=== PATIENT | male | born 1935 | race African-American/Black ===

== ENCOUNTER 2017-01-04 15:02 | Emergency (ER) | payer MEDICARE ==
[~2017-01-04] VITALS: Ht 167.6 cm; Wt 104.3 kg
[2017-01-04 15:43] VITALS: BP 164/89
[2017-01-04 16:34] LABS: MEAN CORPUSCULAR HEMOGLOBIN 30.6 PG (27.0-31.0); MEAN CORPUSCULAR HGB CONC 34.2 G/DL (32.0-36.0); MEAN CORPUSCULAR VOLUME 89 FL (80-99); MEAN PLATELET VOLUME 7.5 FL (6.5-10.1); PLATELET COUNT 87 K/UL (150-450); RED BLOOD COUNT 3.72 M/UL (4.70-6.10); RED CELL DISTRIBUTION WIDTH 13.2 % (11.6-14.8); WHITE BLOOD COUNT 6.9 K/UL (4.8-10.8)
[2017-01-04 16:37] LABS: BASOPHILS % (AUTO) 1.3 % (0.0-2.0); EOSINOPHILS % (AUTO) 3.6 % (0.0-3.0); LYMPHOCYTES % (AUTO) 22.8 % (20.0-45.0); MONOCYTES % (AUTO) 9.4 % (1.0-10.0); NEUTROPHILS % (AUTO) 62.9 % (45.0-75.0)
[2017-01-04 17:08] LABS: ALANINE AMINOTRANSFERASE 55 U/L (3-41); ALBUMIN/GLOBULIN RATIO 0.9 (1.0-2.7); ANION GAP 12 (5-15); ASPARTATE AMINO TRANSFERASE 61 U/L (5-40); CALCIUM 9.4 mg/dL (8.6-10.2); CARBON DIOXIDE 23 mEQ/L (20-30); CHLORIDE 104 mEQ/L (98-107); CREATININE 1.4 mg/dL (0.7-1.2); HEMOLYSIS 88; LIPASE 44 U/L (< 60); POTASSIUM 5.2 mEQ/L (3.4-4.9); SODIUM 139 mEQ/L (135-145); TOTAL PROTEIN 7.6 g/dL (6.6-8.7)
[2017-01-04] MEDS ORDERED: Morphine Sulfate 4mg/ml Inj IVP ONE (17:30)
[2017-01-04 17:44] VITALS: BP 156/84
[2017-01-04 18:10] LABS: APPEARANCE,URINE CLEAR; KETONES,URINE NEGATIVE (NEGATIVE); LEUKOCYTE ESTERASE ,URINE NEGATIVE (NEGATIVE); NITRITE,URINE NEGATIVE (NEGATIVE); PH,URINE 6.5 (4.5-8.0); PROTEIN,URINE NEGATIVE (NEGATIVE); UROBILINOGEN,URINE NORMAL MG/DL (0.0-1.0)
[2017-01-04] MEDS ORDERED: Sodium Polystyrene Sulfonate 15gm Powder ORAL ONE (18:30)
[2017-01-04] MEDS ORDERED: metroNIDAZOLE 500mg tab ORAL ONE (18:30)
[2017-01-04] MEDS ORDERED: Ciprofloxacin 500mg tab ORAL ONE (18:30)
[2017-01-04] MEDS ORDERED: METRONIDAZOLE500 MG ORAL (18:32)
[2017-01-04] MEDS ORDERED: ACETAMINOPHEN-1 EAC1 ORAL (18:32)
[2017-01-04] MEDS ORDERED: CIPROFLOXACIN500 M2 ORAL (18:32)
[2017-01-04] MEDS ORDERED: COLACE100 MG ORAL (18:32)
[2017-01-04 18:52] VITALS: BP 156/84
--- NOTE | 2017-01-04 20:06 | Emergency Room Report ---
History of Present Illness General Chief Complaint: Constipation Source: Patient Present Illness HPI 81-year-old male presents ED complaining of rectal bleeding times one day. Patient has history of constipation and states that he is currently not taking any medication. Feels that he has a hard time with bowel movements. Has blood in stool. Patient denies taking any blood thinners. Patient notes some lower abdominal pain, 5-10, sharp, nonradiating. Denies fevers or chills. Denies nausea or vomiting. Seen by urologist yesterday. Recently treated for UTI. No other aggravating relieving factors. Denies any other associated symptom Allergies: Coded Allergies: UNABLE TO ASSESS (Unverified , 01/04/17) PT REPORTS ALLERGIES TO HTN MEDS BUT DOES NOT RECALL MED NAME Patient History Past Medical History: none, DM, HTN, GERD Past Surgical History: none Pertinent Family History: none Social History: Denies: smoking, alcohol use, drug use Immunizations: UTD Reviewed Nursing Documentation: PMH: Agreed, PSxH: Agreed Nursing Documentation-PMH Past Medical History: No History, Except For Hx Hypertension: Yes Hx Diabetes: Yes Hx Gastrointestinal Problems: Yes - Acid reflux Hx Neurological Problems: Yes - "Spine problems" Review of Systems All Other Systems: negative except mentioned in HPI Physical Exam Vital Signs Date Time Temp Pulse Resp B/P (MAP) Pulse Ox O2 Delivery O2 Flow Rate FiO2 01/04/17 15:24 99.0 110 16 152/92 99 Room Air Sp02 EP Interpretation: reviewed, normal General Appearance: no apparent distress, alert, GCS 15, non-toxic, obese Head: normocephalic, atraumatic Eyes: bilateral eye normal inspection, bilateral eye PERRL ENT: hearing grossly normal, normal pharynx, no angioedema, normal voice Neck: full range of motion, supple/symm/no masses Respiratory: chest non-tender, lungs clear, normal breath sounds, speaking full sentences Cardiovascular #1: regular rate, rhythm, no edema Cardiovascular #2: 2+ carotid (R), 2+ carotid (L), 2+ radial (R), 2+ radial (L) , 2+ dorsalis pedis (R), 2+ dorsalis pedis (L) Gastrointestinal: normal bowel sounds, soft, non-distended, no guarding, no rebound, tenderness Rectal: tenderness Genitourinary: normal inspection, no CVA tenderness Musculoskeletal: back normal, gait/station normal, normal range of motion, non- tender Neurologic: alert, oriented x3, responsive, motor strength/tone normal, sensory intact, speech normal Psychiatric: judgement/insight normal, memory normal, mood/affect normal, no suicidal/homicidal ideation Reflexes: 3+ bicep (R), 3+ bicep (L), 3+ tricep (R), 3+ tricep (L), 3+ knee (R) , 3+ knee (L) Skin: normal color, no rash, warm/dry, well hydrated Lymphatic: no adenopathy Medical Decision Making Diagnostic Impression: Primary Impression: Proctitis Additional Impression: Constipation Qualified Codes: K59.00 - Constipation, unspecified ER Course Hospital Course 81-year-old M presents to ED with abdominal pain, blood in stool Differential diagnosis includes-diverticulitis, LGIB, constipation, hemorrhoids Clinical course Patient placed on stretcher. After initial history and physical I ordered labs , IV fluids, pain medications and CT scan Labs - no leukocytosis, K 5.2, Cr 1.4, LFTs normal Patient is requesting enema during this time. I explained that we need to wait for CT results CT scan shows fecal impaction, evidence of proctitis I discussed case with urology Dr Brand; he agrees that patient should not receive an enema. Given that patient is afebrile with no leukocytosis, he can be safely discharged with antibiotics. Discussed findings with patient. He will followup with his urologist this week. Given Kayexalate. Given Cipro and Flagyl in ED Upon reassessment, patient states pain has improved. Given improvement in symptoms and lack of acute findings, I believe patient can be safely discharged to home. Patient agrees with plan I feel this is a highly complex case requiring extensive working including EKG/ Rhythm strip, Xray/CT/US, Blood/urine lab work, repeat exams while in ED, and administration of strong opiates/narcotics for pain control, admission to hospital or close patient follow up. Diagnosis - proctitis, constipation Stable and discharged to home with Rx Colace, Cipro, Flagyl, Tylenol #3. Followup with PMD/urology. Return to ED if symptoms recur or worsen Labs Test 01/04/17 16:15 01/04/17 17:50 White Blood Count 6.9 K/UL (4.8-10.8) Red Blood Count 3.72 M/UL (4.70-6.10) Hemoglobin 11.4 G/DL (14.2-18.0) Hematocrit 33.2 % (42.0-52.0) Mean Corpuscular Volume 89 FL (80-99) Mean Corpuscular Hemoglobin 30.6 PG (27.0-31.0) Mean Corpuscular Hemoglobin Concent 34.2 G/DL (32.0-36.0) Red Cell Distribution Width 13.2 % (11.6-14.8) Platelet Count 87 K/UL (150-450) Mean Platelet Volume 7.5 FL (6.5-10.1) Neutrophils (%) (Auto) 62.9 % (45.0-75.0) Lymphocytes (%) (Auto) 22.8 % (20.0-45.0) Monocytes (%) (Auto) 9.4 % (1.0-10.0) Eosinophils (%) (Auto) 3.6 % (0.0-3.0) Basophils (%) (Auto) 1.3 % (0.0-2.0) Sodium Level 139 mEQ/L (135-145) Potassium Level 5.2 mEQ/L (3.4-4.9) Chloride Level 104 mEQ/L (98-107) Carbon Dioxide Level 23 mEQ/L (20-30) Anion Gap 12 (5-15) Blood Urea Nitrogen 15 mg/dL (7-23) Creatinine 1.4 mg/dL (0.7-1.2) Estimat Glomerular Filtration Rate mL/min (>60) Glucose Level 109 mg/dL (74-106) Calcium Level 9.4 mg/dL (8.6-10.2) Total Bilirubin 0.3 mg/dL (0.0-1.2) Aspartate Amino Transf (AST/SGOT) 61 U/L (5-40) Alanine Aminotransferase (ALT/SGPT) 55 U/L (3-41) Alkaline Phosphatase 81 U/L (40-129) Total Protein 7.6 g/dL (6.6-8.7) Albumin 3.6 g/dL (3.5-5.2) Globulin 4.0 g/dL Albumin/Globulin Ratio 0.9 (1.0-2.7) Lipase 44 U/L (< 60) Urine Color Yellow Urine Appearance Clear Urine pH 6.5 (4.5-8.0) Urine Specific [place] 1.010 (1.005-1.035) Urine Protein Negative (NEGATIVE) Urine Glucose (UA) Negative (NEGATIVE) Urine Ketones Negative (NEGATIVE) Urine Occult Blood Negative (NEGATIVE) Urine Nitrite Negative (NEGATIVE) Urine Bilirubin Negative (NEGATIVE) Urine Urobilinogen Normal MG/DL (0.0-1.0) Urine Leukocyte Esterase Negative (NEGATIVE) CT/MRI/US Diagnostic Results CT/MRI/US Diagnostic Results : Imaging Test Ordered: CT A/P Impression fecal impaction. proctitis Last Vital Signs Date Time Temp Pulse Resp B/P (MAP) Pulse Ox O2 Delivery O2 Flow Rate FiO2 01/04/17 18:52 98.9 94 13 156/84 100 Room Air Status: improved Disposition: HOME, SELF-CARE Condition: Stable Scripts Docusate Sodium* (COLACE*) 100 Mg Capsule 100 MG ORAL THREE TIMES A DAY, #30 CAP Prov: PEPITO GOMEZ M.D. 01/04/17 Acetaminophen With Codeine (T#3) (TYLENOL #3 TAB*) Y Tab 1 TAB ORAL Q8H Y for For Pain, #20 TAB Prov: PEPITO GOMEZ M.D. 01/04/17 Metronidazole* (FLAGYL*) 500 Mg Tablet 500 MG ORAL THREE TIMES A DAY, #21 TAB Prov: PEPITO GOMEZ M.D. 01/04/17 Ciprofloxacin Hcl* (CIPROFLOXACIN HCL*) 500 Mg Tablet 500 MG ORAL Q12H, #14 TAB 0 Refills Prov: PEPITO GOMEZ M.D. 01/04/17 Patient Instructions: Proctitis PEPITO GOMEZ M.D. Jan 04, 2017 20:06
--- NOTE | 2017-01-05 10:13 | Diagnostic Imaging Report ---
Indication: Abdominal pain Technique: Continuous helical transaxial imaging of the abdomen and pelvis was obtained from the lung bases to the pubic symphysis during intravenous contrast administration. Coronal 2-D reformats were also obtained. Study obtained in a Siemens sensation [address] Total Dose length Product (DLP): [address] Dose Index Volume (CTDIvol): 18.6, 0.15 mGy Comparison: None Findings: There is mild bronchiectasis noted at the lung bases. Mild peripheral reticular densities also noted. There are rib deformities probably from old injury. The liver is low in attenuation a moderate degree consistent with fatty infiltration. Gallbladder is contracted. Spleen appears to be normal size. No abnormalities of the pancreas identified. There are bilateral renal cysts. There is no adrenal mass or hydronephrosis. There is a Mcdaniel catheter present. The urinary bladder wall is prominent and thickened but the bladder is nondistended. Normal appendix noted. There is a moderate degree of fecal retention demonstrated within the distal colon and rectum. There is thickening of the rectal wall and presacral soft tissue stranding indicative of proctitis. Small nodes are noted in the iliac and inguinal regions nonspecific. Arterial vascular calcifications are present within the aorta and iliac arteries. There is narrowing and vacuum phenomena of intervertebral discs and accompanying endplate osteophyte formation. Hypertrophied facet joints also demonstrated. Impression: Proctitis with thickened rectal wall, perirectal inflammation and moderate colorectal fecal retention. Moderate fatty liver Bilateral renal cysts Spondylosis Atherosclerotic vascular disease Suggestion of mild peripheral fibrosis at the lung bases with mild bronchiectasis. Normal appendix Mcdaniel catheter. The CT scanner at [facility] is accredited by the [employer] and the scans are performed using dose optimization techniques as appropriate to a performed exam including Automatic Exposure control.
== END 2017-01-04 18:53 | disposition home or self-care (01) ==
LOC: EMR 15:40
DX: K62.89 Other specified diseases of anus and rectum (principal); K59.00 Constipation, unspecified; E11.9 Type 2 diabetes mellitus without complications; I10 Essential (primary) hypertension; K21.9 Gastro-esophageal reflux disease without esophagitis; E66.9 Obesity, unspecified; Z68.37 Body mass index [BMI] 37.0-37.9, adult; K76.0 Fatty (change of) liver, not elsewhere classified; N28.1 Cyst of kidney, acquired; M47.9 Spondylosis, unspecified; I70.90 Unspecified atherosclerosis
CPT/HCPCS: 36415; 74177; 80053; 81003; 83690; 85025; 96361; 96374; 99284; J2270; J7040; Q9967